=== PATIENT | male | born 1950 | race Caucasian/White ===

== ENCOUNTER 2017-06-01 18:24 | Emergency (ER) | payer BC ==
[2017-06-01 18:52] VITALS: BMI 29.9
[2017-06-01 18:56] VITALS: BP 151/87; PULSE 68; RESP 18; TEMP 98.3; O2SAT 95
--- NOTE | 2017-06-01 18:59 | ED PDOC ---
Arrival/HPI - General Time Seen by Provider: 06/01/17 18:57 Historian: Patient - History of Present Illness Narrative History of Present Illness (Text): 06/01/17 18:58 This 66 yo male with pmh gout, presents to this ED c/o left foot pain, and swelling x 5 days. Patient stated he had a lower leg injury x 5 weeks ago. His left lower leg was swollen and painful. Swelling improved. Denies sob, cp , fever, or skin rash. Patient stated his PMD recommended him to come to ED for ultrasound. Time/Duration: Other (5 days) Quality: Aching Context: Home Past Medical History - Provider Review Nursing Documentation Reviewed: Yes - Infectious Disease Hx of Infectious Diseases: None - Cardiac Hx Pacemaker: No - Neurological Hx Paralysis: No - Endocrine/Metabolic Other/Comment: Gout - Hematological/Oncological Hx Blood Transfusions: No Hx Blood Transfusion Reaction: No - Musculoskeletal/Rheumatological Hx Musculoskeletal Disorders: No - Psychiatric Hx Emotional Abuse: No Hx Physical Abuse: No Hx Substance Use: No - Surgical History Other/Comment: Vein Stripping - Anesthesia Hx Anesthesia Reactions: No Hx Malignant Hyperthermia: No - Suicidal Assessment Feels Threatened In Home Enviroment: No Family/Social History - Physician Review Nursing Documentation Reviewed: Yes Family/Social History: No Known Family HX Smoking Status: Never Smoked Hx Alcohol Use: Yes (STOPPED 5-7YRS AGO) Hx Substance Use: No Allergies/Home Meds Allergies/Adverse Reactions: Allergies No Known Allergies Allergy (Verified 06/04/15 11:36) Home Medications: Home Meds Medication Instructions Recorded Confirmed Febuxostat [Uloric] 40 mg PO Q7D 06/02/16 06/01/17 Review of Systems - Review of Systems Constitutional: Normal. absent: Fatigue, Weight Change, Fevers Eyes: Normal ENT: Normal Respiratory: Normal. absent: SOB, Cough Cardiovascular: Normal. absent: Chest Pain, Palpitations Gastrointestinal: Normal. absent: Abdominal Pain, Nausea, Vomiting Genitourinary Male: Normal Musculoskeletal: Other (left foot pain) Skin: Normal Neurological: Normal Endocrine: Normal Hemo/Lymphatic: Normal Psychiatric: Normal Physical Exam Vital Signs Temp Pulse Resp BP Pulse Ox 06/01/17 18:54 98.3 F 68 18 151/87 H 95 Temperature: Afebrile Blood Pressure: Normal Pulse: Regular Respiratory Rate: Normal Appearance: Positive for: Well-Appearing, Non-Toxic, Comfortable Pain Distress: None Mental Status: Positive for: Alert and Oriented X 3 - Systems Exam Head: Present: Atraumatic, Normocephalic Pupils: Present: PERRL Extroacular Muscles: Present: EOMI Conjunctiva: Present: Normal Mouth: Present: Moist Mucous Membranes Neck: Present: Normal Range of Motion Respiratory/Chest: Present: Clear to Auscultation, Good Air Exchange. No: Respiratory Distress, Accessory Muscle Use Cardiovascular: Present: Regular Rate and Rhythm, Normal S1, S2. No: Murmurs Abdomen: Present: Normal Bowel Sounds. No: Tenderness, Distention, Peritoneal Signs Back: Present: Normal Inspection Upper Extremity: Present: Normal Inspection, Normal ROM, NORMAL PULSES, Neurovascularly Intact, Capillary Refill < 2s. No: Cyanosis, Edema Lower Extremity: Present: NORMAL PULSES, Normal ROM, Tenderness (mild swelling left dorsal foot, and 1st MPJ), Neurovascularly Intact, Capillary Refill < 2 s. No: Edema, CALF TENDERNESS, Kenroy's Sign, Erythema, Deformity, Temperature Abnormalties Neurological: Present: GCS=15, CN II-XII Intact, Speech Normal Skin: Present: Warm, Dry, Normal Color. No: Rashes Psychiatric: Present: Alert, Oriented x 3, Normal Insight, Normal Concentration Medical Decision Making ED Course and Treatment: 06/01/17 20:03 Re-evaluation. Patient feels better. Discussed results and plan with patient who expresses understanding. Counseling was provided regarding the diagnosis and prognosis. All questions answered and there is agreement with the plan to discharge home with instructions. Patient stable for discharge. Return if symptoms persist or worsen. Patient understands LE venous doppler was negative for DVT. Patient has a hx. gout, he is requesting medication for gout. \Patient was recommended to return to ED if symptoms worsen. Re-evaluation Time: 20:05 Reassessment Condition: Re-examined, Improved - RAD Interpretation Narrative RAD Interpretations (Text): 06/01/17 20:08 Venous Doppler lower extremity: No DVT as per US Foot x-rays: No fx Radiology Orders: 06/01/17 18:57 DUPLEX LOWER EXTRM VEIN LEFT [US] Stat 06/01/17 18:58 FOOT LEFT 3 VIEWS ROUTINE [RAD] Stat Disposition/Present on Arrival - Present on Arrival Any Indicators Present on Arrival: No History of DVT/PE: No History of Uncontrolled Diabetes: No Urinary Catheter: No History Surgical Site Infection Following: None - Disposition Have Diagnosis and Disposition been Completed?: Yes Diagnosis: Gout attack Disposition: HOME/ ROUTINE Disposition Time: 20:09 Patient Plan: Discharge Condition: GOOD Discharge Instructions (ExitCare): Gout (ED) Additional Instructions: Call private doctor for follow up visit in 1-2 days. Take medication as instructed with food. Avoid alcohol, dairy products, beans, or meat. Return to emergency if symptoms worsen. Prescriptions: Colchicine 0.6 mg PO DAILY #3 tablet Famotidine [Pepcid] 40 mg PO DAILY #10 tablet Naproxen 500 mg PO BID PRN #14 tab PRN Reason: Pain, Severe (8-10) Forms: [facility] (Spanish)
--- NOTE | 2017-06-02 07:40 | RAD ---
PROCEDURE: Left Foot Radiographs. HISTORY: pain COMPARISON: None. FINDINGS: BONES: Normal. No fracture. JOINTS: Normal. SOFT TISSUES: A tiny focal area of heterotopic calcification or potential retained radiodense foreign body is seen at the medial dorsal mid to hindfoot left, with the former favored over the latter. Soft tissues otherwise appear unremarkable. OTHER FINDINGS: None. IMPRESSION: No acute fracture or dislocation. Punctate radiodense calcification is favored over retained radiodense foreign body of the medial dorsal foot soft tissues which are otherwise unremarkable.
--- NOTE | 2017-06-02 18:35 | US ---
PROCEDURE: Left lower extremity venous US HISTORY: Leg pain and swelling. Evaluate for DVT. PHYSICIAN(S): Franck Riley MD. TECHNIQUE: Duplex sonography and color-flow Doppler with graded compression were used to evaluate the deep venous system of the left lower extremity. FINDINGS: The visualized deep venous system of the left lower extremity is sonographically normal and compressible. Normal wave forms and augmentation are seen. There is no sonographic evidence for deep venous thrombosis in the visualized segments of the left lower extremity. IMPRESSION: 1. No sonographic evidence for deep venous thrombosis in the visualized segments of the left lower extremity.
== END 2017-06-01 20:22 | disposition home or self-care (01) ==
LOC: ED 18:24
DX: M10.9 Gout, unspecified (principal)
CPT/HCPCS: 73630; 93971; 96372; 99283; J1885